=== PATIENT | female | born 1955 | race American Indian/Alaskan Native ===

== ENCOUNTER 2016-12-31 18:45 | Emergency (ER) | payer MEDICARE ==
[2016-12-31] MEDS ORDERED: TORADOL IV ONE (22:02)
[2016-12-31] MEDS ORDERED: DILAUDID IV ONE (22:02)
--- NOTE | 2016-12-31 22:03 | Emergency Department Report ---
ED Fall HPI - General Chief Complaint: Extremity Injury, Upper Stated Complaint: FALL Time Seen by Provider: 12/31/16 21:54 Source: patient Mode of arrival: Ambulatory Limitations: Physical Limitation - History of Present Illness Initial Comments: This is a 61-year-old female. She is right-hand dominant. She presents to the ER with right-sided shoulder pain after mechanical fall. Did not hit her head. Did not hit her neck. Shoulder pain is sharp. It increases with palpation and range of motion. Decreases with rest. No other injuries, no other complaints. MD Complaint: fall -: Sudden Fall From: standing When Fall Occurred: [address] Fall Occurred: home Loss of Consciousness: none Prolonged Down Time?: no Symptoms Prior to Fall: none Location - Extremities: Right: Shoulder, Arm Severity: moderate Quality: sharp Context: tripped/slipped Associated Symptoms: denies: headache, neck pain, numbness, weakness, chest paint, shortness of breath, abdominal pain, hematuria, lightheaded, vertigo, confusion - Related Data Home Medications Medication Instructions Recorded Confirmed Last Taken Amitriptyline [Elavil] 25 mg PO QHS 07/31/13 07/31/13 07/30/13 Estrogens, Conjugated [Premarin] 1.25 mg PO QDAY 07/31/13 07/31/13 07/30/13 Lisinopril [Zestril] 5 mg PO QDAY 07/31/13 07/31/13 07/30/13 Metformin HCl [Fortamet] 1,000 mg PO BID 07/31/13 07/31/13 07/30/13 amLODIPine [Norvasc] 5 mg PO DAILY 07/31/13 07/31/13 07/30/13 glyBURIDE [Diabeta] 5 mg PO DAILY 07/31/13 07/31/13 07/30/13 traMADol [Ultram] 50 mg PO BID PRN 07/31/13 07/31/13 07/30/13 Previous Rx's Medication Instructions Recorded Last Taken Type Cyclobenzaprine [Flexeril] 10 mg PO TID PRN #30 tablet 07/31/13 Unknown Rx Ibuprofen [Motrin] 800 mg PO TID #30 tablet 07/31/13 Unknown Rx Docusate Sodium [Colace] 100 mg PO BID PRN #60 capsule 08/27/14 Unknown Rx Lactulose [Cephulac] 20 gm PO QDAY #90 ml 08/27/14 Unknown Rx Pantoprazole [Protonix] 40 mg PO QDAY #60 tablet 08/27/14 Unknown Rx traMADol [Ultram] 50 mg PO Q4HR PRN #20 tablet 08/27/14 Unknown Rx ALBUTEROL Inhaler [ProAir HFA 2 puff IH QID PRN #1 inhalation 03/22/16 Unknown Rx Inhaler] HYDROcodone/APAP 5-325 [Mcdonald 1 each PO Q6HR PRN #20 tablet 03/22/16 Unknown Rx 5-325 mg TAB] predniSONE [Deltasone] 20 mg PO QDAY #5 tab 03/22/16 Unknown Rx Ketorolac [Toradol] 10 mg PO Q6H PRN #20 tablet 12/31/16 Unknown Rx oxyCODONE [Roxicodone] 5 mg PO Q6HR PRN #15 tablet 12/31/16 Unknown Rx Allergies Allergy/AdvReac Type Severity Reaction Status Date / Time Penicillins Allergy Rash Verified 07/31/13 01:12 Sulfa (Sulfonamide Allergy Hives Verified 07/31/13 01:12 Antibiotics) ED Review of Systems ROS: Stated complaint: FALL Other details as noted in HPI Constitutional: denies: fever Eyes: denies: vision change ENT: denies: epistaxis Respiratory: denies: cough Cardiovascular: denies: palpitations Gastrointestinal: denies: abdominal pain Genitourinary: denies: urgency, dysuria Musculoskeletal: arthralgia, myalgia Skin: denies: lesions Neurological: denies: weakness Psychiatric: anxiety ED Past Medical Hx - Past Medical History Hx Hypertension: Yes Hx Diabetes: Yes - Surgical History Additional Surgical History: left knee surgery. "TUMMY TUCK". BREAST AUGMENTATION - Social History Smoking Status: Never Smoker Substance Use Type: None - Medications Home Medications: Home Medications Medication Instructions Recorded Confirmed Last Taken Type Amitriptyline [Elavil] 25 mg PO QHS 07/31/13 07/31/13 07/30/13 History Cyclobenzaprine [Flexeril] 10 mg PO TID PRN #30 tablet 07/31/13 Unknown Rx Estrogens, Conjugated [Premarin] 1.25 mg PO QDAY 07/31/13 07/31/13 07/30/13 History Ibuprofen [Motrin] 800 mg PO TID #30 tablet 07/31/13 Unknown Rx Lisinopril [Zestril] 5 mg PO QDAY 07/31/13 07/31/13 07/30/13 History Metformin HCl [Fortamet] 1,000 mg PO BID 07/31/13 07/31/13 07/30/13 History amLODIPine [Norvasc] 5 mg PO DAILY 07/31/13 07/31/13 07/30/13 History glyBURIDE [Diabeta] 5 mg PO DAILY 07/31/13 07/31/13 07/30/13 History traMADol [Ultram] 50 mg PO BID PRN 07/31/13 07/31/13 07/30/13 History Docusate Sodium [Colace] 100 mg PO BID PRN #60 capsule 08/27/14 Unknown Rx Lactulose [Cephulac] 20 gm PO QDAY #90 ml 08/27/14 Unknown Rx Pantoprazole [Protonix] 40 mg PO QDAY #60 tablet 08/27/14 Unknown Rx traMADol [Ultram] 50 mg PO Q4HR PRN #20 tablet 08/27/14 Unknown Rx ALBUTEROL Inhaler [ProAir HFA 2 puff IH QID PRN #1 inhalation 03/22/16 Unknown Rx Inhaler] HYDROcodone/APAP 5-325 [Mcdonald 1 each PO Q6HR PRN #20 tablet 03/22/16 Unknown Rx 5-325 mg TAB] predniSONE [Deltasone] 20 mg PO QDAY #5 tab 03/22/16 Unknown Rx Ketorolac [Toradol] 10 mg PO Q6H PRN #20 tablet 12/31/16 Unknown Rx oxyCODONE [Roxicodone] 5 mg PO Q6HR PRN #15 tablet 12/31/16 Unknown Rx ED Physical Exam - General Limitations: No Limitations, Physical Limitation General appearance: alert, in distress - Head Head exam: Present: atraumatic, normocephalic - Eye Eye exam: Present: normal appearance, EOMI. Absent: nystagmus - ENT ENT exam: Present: normal exam, normal orophraynx, mucous membranes moist, normal external ear exam - Neck Neck exam: Present: normal inspection, full ROM. Absent: tenderness, meningismus - Respiratory Respiratory exam: Present: normal lung sounds bilaterally. Absent: respiratory distress, wheezes, rales, rhonchi, stridor, decreased breath sounds - Cardiovascular Cardiovascular Exam: Present: regular rate, normal rhythm, normal heart sounds. Absent: bradycardia, tachycardia, irregular rhythm, systolic murmur, diastolic murmur, rubs, gallop - GI/Abdominal GI/Abdominal exam: Present: soft, normal bowel sounds. Absent: distended, tenderness, guarding, rebound, rigid, pulsatile mass - Extremities Exam Extremities exam: Present: tenderness, normal capillary refill, other (left upper extremity within normal limits. The bilateral lower extremities are within normal limits. Sensation intact to light touch in the bilateral deltoid , median, radial, ulnar distribution. Compartments are soft in the right upper extremity. Proximal deltoid tenderness.). Absent: calf tenderness - Back Exam Back exam: Present: normal inspection, full ROM. Absent: tenderness, CVA tenderness (R), CVA tenderness (L), muscle spasm, paraspinal tenderness, vertebral tenderness - Neurological Exam Neurological exam: Present: alert, oriented X3, normal gait, other (Extraocular movements intact. Tongue midline. No facial droop. Facial sensation intact to light touch in the V1, V2, V3 distribution bilaterally. 5 and 5 strength in 4 extremities.. Sensation is intact to light touch in 4 extremities.). Absent : motor sensory deficit - Psychiatric Psychiatric exam: Present: anxious - Skin Skin exam: Present: warm, dry, intact, normal color. Absent: rash ED Course Vital Signs 12/31/16 12/31/16 12/31/16 20:37 20:58 21:43 Temperature 98.4 F 98.4 F 98.8 F Pulse Rate 84 84 82 Respiratory 22 20 18 Rate Blood Pressure 220/113 Blood Pressure 220/113 171/86 [Right] O2 Sat by Pulse 98 98 99 Oximetry 01/01/17 00:06 Temperature Pulse Rate 82 Respiratory 18 Rate Blood Pressure Blood Pressure 168/72 [Right] O2 Sat by Pulse 99 Oximetry - Reevaluation(s) Reevaluation #1: 12/31/16 23:21 Differential diagnosis: Shoulder fracture, humerus dislocation Assessment and plan: 61-year-old female status post mechanical fall onto her right shoulder. She has a GCS of 15, with an NIH score of 0. I find the patient to be low risk by the [place] C-spine rule, and she ruled out through Nexus criteria. Compartments are soft, sensation intact and appropriate nerve distributions. Plain films demonstrate a proximal right humerus fracture. She is already in a shoulder sling. The patient is on multiple chronic pain medication, and most likely has a high pain tolerance. She was given Toradol, Dilaudid for pain. She was still complaining of pain, so she was given ketamine, 0.3 mg/kg as a single pane dose. The case is discussed with the orthopedic physician on-call, Dr. Douglass, who recommends that the patient remain in a shoulder sling/immobilizer, indicates the patient can follow-up in his office in the next few days. Patient will be discharged. Return precautions are reviewed. ED Medical Decision Making - Lab Data Vital Signs 12/31/16 12/31/16 12/31/16 20:37 20:58 21:43 Temperature 98.4 F 98.4 F 98.8 F Pulse Rate 84 84 82 Respiratory 22 20 18 Rate Blood Pressure 220/113 Blood Pressure 220/113 171/86 [Right] O2 Sat by Pulse 98 98 99 Oximetry - Radiology Data Radiology results: report reviewed, image reviewed X-ray of the shoulder demonstrates proximal right humerus fracture. No obvious shoulder dislocation. Critical care attestation.: If time is entered above; I have spent that time in minutes in the direct care of this critically ill patient, excluding procedure time. ED Disposition Clinical Impression: Humeral fracture, Elevated blood pressure Disposition: DISCHARGED TO HOME OR SELFCARE Is pt being admited?: No Does the pt Need Aspirin: No Condition: Stable Instructions: Arm Fracture in Adults (ED) Additional Instructions: Keep the right shoulder sling in place. Follow up with a primary care doctor within the next 2 weeks for your elevated blood pressure. Long-term complications of elevated blood pressure includes stroke, heart attack, disability, , paralysis, permanent loss of quality of life. Follow-up with an orthopedic surgeon within the next 3-[address] Douglass is a local orthopedic surgeon. Take the pain medication as directed. If taking the pain medication, do not combine with other sedating medications, do not consume alcohol, do not drive, do not make important decisions. Return to the ER right away with new pain, worsened pain, migration of pain, fevers or chills, intractable nausea or vomiting, inability to tolerate liquid feeds, extremity weakness extremity numbness. Prescriptions: Ketorolac [Toradol] 10 mg PO Q6H PRN #20 tablet PRN Reason: Pain oxyCODONE [Roxicodone] 5 mg PO Q6HR PRN #15 tablet PRN Reason: Pain Referrals: PRIMARY CARE, [Primary Care Provider] - 3-5 Days JIMENA DOUGLASS MD [Staff Physician] - 3-5 Days EUSEBIO SAXENA MD, PHD [Staff Physician] - 3-5 Days
--- NOTE | 2016-12-31 22:07 | XRay Report ---
FINAL REPORT PROCEDURE: XR SHOULDER 2 RT TECHNIQUE: Right shoulder radiographs including AP views in internal and external rotation and abduction. CPT 02349 HISTORY: dislocation COMPARISON: No prior studies are available for comparison. FINDINGS: Fracture (s) and/or Dislocation(s): Fracture of the surgical neck of the proximal humerus. Joint space(s): Glenohumeral and acromioclavicular spurring. Soft tissues: Normal . Bone mineralization: Normal . Foreign bodies: None . IMPRESSION: Proximal humerus fracture
[2016-12-31] MEDS ORDERED: KETALAR IV ONE (22:55)
[2017-01-01 00:06] VITALS: BP 168/72
== END 2017-01-01 00:07 | disposition home or self-care (01) ==
LOC: ED 18:45
DX: S42.201A Unspecified fracture of upper end of right humerus, initial encounter for closed fracture (principal); I10 Essential (primary) hypertension; E11.9 Type 2 diabetes mellitus without complications; Z88.0 Allergy status to penicillin; Z88.2 Allergy status to sulfonamides; W19.XXXA Unspecified fall, initial encounter; Y93.9 Activity, unspecified; Y99.9 Unspecified external cause status; Y92.009 Unspecified place in unspecified non-institutional (private) residence as the place of occurrence of the external cause
CPT/HCPCS: 73030; 96374; 96375; 99284; J1170; J1885